=== PATIENT | female | born 1940 | race Caucasian/White ===

== ENCOUNTER → 2019-05-09 | Outpatient (CLI) | payer OTHER ==
[~2019-05-09] MED LIST: ACET325 PO; ASPI325 PO; CLOP75 PO; DOCU100 PO; ISODIN10 PO; METO50ER PO; OXYC5 PO; PROC5 PO; VERA120 PO
[2019-05-09 14:21] LABS: BASOPHILS ABSOLUTE AUTO 0.04 K/mm3 (0.00-0.23); BASOPHILS PERCENT AUTO 1 % (0-2); EOSINOPHILS PERCENT AUTO 6 % (0-6); Hematocrit 45.7 % (33.0-51.0); Hemoglobin 13.7 g/dL (11.5-16.0); IMMATURE GRAN ABSOLUTE AUTO 0.01 K/mm3 (0.00-0.10); IMMATURE GRAN PERCENT AUTO 0 % (0-1); LYMPHOCYTES ABSOLUTE AUTO 1.33 K/mm3 (0.84-5.20); LYMPHOCYTES PERCENT AUTO 19 % (21-46); MONOCYTES ABSOLUTE AUTO 0.49 K/mm3 (0.16-1.47); MONOCYTES PERCENT AUTO 7 % (4-13); Mean Corpuscular HGB 30.4 pg (26.0-34.0); Mean Corpuscular Volume 101 fL (80-100); NEUTROPHILS PERCENT AUTO 68 % (41-73); Platelet Count 142 K/mm3 (150-400); RDW Coefficient Variation 15.6 % (11.7-14.2); RDW Standard Deviation 59.3 fL (35.1-46.3); Red Blood Cell Count 4.51 M/mm3 (3.80-5.20); White Blood Cell Count 7.17 K/mm3 (4.00-11.30)
[2019-05-09 14:22] LABS: Mean Platelet Volume 13.2 fL (9.1-12.4)
[2019-05-09 14:27] LABS: Alk Phos 74 U/L (50-136); Anion Gap 7 mmol/L (6-16); Aspartate Aminotrans (AST/SGOT 21 U/L (12-37); Bilirubin, Total 0.6 mg/dL (0.1-1.0); Blood Urea Nitrogen 75 mg/dL (8-24); Bun/Creatinine Ratio 50.3 (12.0-20.0); CHOL/HDL RATIO 2.8; CO2, Blood 24 mmol/L (21-32); Calcium, Blood 8.9 mg/dL (8.5-10.1); Chloride, Blood 106 mmol/L (98-108); Cholesterol 151 mg/dL (50-200); Creatinine, Blood 1.49 mg/dL (0.40-1.00); Globulin, Blood 3.9 g/dL (2.2-4.0); Glomerular Filtration Rate 36 (60-); Glucose, Blood 105 mg/dL (70-99); HDL Cholesterol 53 mg/dL (>39); LDL/HDL RATIO 1.4; Low Density Lipoprotein Chol 76 mg/dL (0-110); Potassium, Blood 4.5 mmol/L (3.5-5.5); Sodium, Blood 137 mmol/L (136-145); Total Protein, Blood 7.9 g/dL (6.4-8.2); Triglycerides 108 mg/dL (30-160); Very Low Density Lipoprot Chol 21 mg/dL (6-32)
[2019-05-09 14:43] LABS: Alanine Aminotransfer (ALT/SGP 31 U/L (12-78)
== END | disposition home or self-care (01) ==
LOC: LAB SHORT 12:57 → LAB 12:57
PROVIDERS: Family Medicine
DX: E78.00 Pure hypercholesterolemia, unspecified (principal); I50.9 Heart failure, unspecified
CPT/HCPCS: 80053; 80061; 83880; 85025

== ENCOUNTER 2019-05-16 17:37 | Inpatient (IN) | payer OTHER ==
[~2019-05-16] VITALS: Ht 149.9 cm; Wt 80.8 kg
[~2019-05-16 17:37] MED LIST changes: -METO50ER PO; -VERA120 PO
[2019-05-16 18:10] LABS: Calcium, Ionized (POC) 1.15 mmol/L (1.10-1.46); Chloride (POC) 98 mmol/L (98-108); Creatinine (POC) 2.7 mg/dL (0.6-1.0); Glucose (ISTAT POC) 168 mg/dL (70-99); Hemoglobin (POC) 14.6 g/dL (12.0-16.0); Potassium (POC) 5.9 mmol/L (3.5-5.5); Sodium (POC) 128 mmol/L (135-148); Total CO2 (POC) 22 mmol/L (21-32)
[2019-05-16 18:30] LABS: BASOPHILS ABSOLUTE AUTO 0.03 K/mm3 (0.00-0.23); BASOPHILS PERCENT AUTO 0 % (0-2); EOSINOPHILS ABSOLUTE AUTO 0.07 K/mm3 (0.00-0.68); EOSINOPHILS PERCENT AUTO 1 % (0-6); Hematocrit 41.4 % (33.0-51.0); Hemoglobin 12.4 g/dL (11.5-16.0); IMMATURE GRAN PERCENT AUTO 1 % (0-1); LYMPHOCYTES PERCENT AUTO 9 % (21-46); MONOCYTES ABSOLUTE AUTO 0.92 K/mm3 (0.16-1.47); MONOCYTES PERCENT AUTO 7 % (4-13); Mean Corpuscular HGB 29.7 pg (26.0-34.0); Mean Corpuscular Volume 99 fL (80-100); NEUTROPHILS ABSOLUTE AUTO 11.08 K/mm3 (1.96-9.15); NEUTROPHILS PERCENT AUTO 83 % (41-73); Platelet Count 160 K/mm3 (150-400); RDW Standard Deviation 58.8 fL (35.1-46.3); Red Blood Cell Count 4.17 M/mm3 (3.80-5.20)
[2019-05-16] MEDS ORDERED: ENTRESTO 49 MG PO (18:54)
[2019-05-16] MEDS ORDERED: FURO40 PO (18:54)
[2019-05-16] MEDS ORDERED: Calan Sr120 MG PO (18:56)
[2019-05-16] MEDS ORDERED: WARF5 PO (18:56)
[2019-05-16] MEDS ORDERED: Potassium Chlo20 ME1 PO (18:57)
[2019-05-16] MEDS ORDERED: METO25 PO (18:58)
[2019-05-16 19:02] LABS: Albumin, Blood 3.5 g/dL (3.4-5.0); Bilirubin, Total 0.7 mg/dL (0.1-1.0); Bun/Creatinine Ratio 33.8 (12.0-20.0); Calcium, Blood 8.5 mg/dL (8.5-10.1); Creatinine, Blood 2.28 mg/dL (0.40-1.00); Globulin, Blood 3.6 g/dL (2.2-4.0); Potassium, Blood 5.7 mmol/L (3.5-5.5); Total Protein, Blood 7.1 g/dL (6.4-8.2)
[2019-05-16] MEDS ORDERED: WARF3 PO (19:09)
[2019-05-16] MEDS ORDERED: Carvedilol25 MG PO (19:10)
[2019-05-16 21:42] LABS: International Normalized Ratio 2.29; Prothrombin Time Results 22.5 Sec (9.7-11.5)
--- NOTE | 2019-05-16 23:09 | NUR ---
PCU ADMIT PT BROUGHT TO PCU RM 08 FROM ER BY SANDRA @ APPROX 2130. PT A&O X4, ABLE TO STAND AND AMBULATE TO PCU BED W/ 1 PERSON ASSIST. PT REPORTS EPISODES OF LIGHTHEADEDNESS/DIZZINESS AND "PRESSURE BEHIND MY EYES AFFECTING MY VISION." THAT PT REPORTS TO BE NEW "JUST THIS WEEK." PT DENIES LIGHTHEADEDNESS/DIZZINESS W/ TRANSFER FROM [facility] TO PCU BED. PT REPORTS "I DON'T DO WELL WITH MEDICATIONS. I THINK ALL OF THIS IS BECAUSE THEY HAVE ME ON THOSE NEW PILLS, THE ONES FOR MY AFIB." PT REPORTS VOMITING THIS AM AFTER TAKING AM MEDICATIONS. PT ALSO REPORTS EPISODE OF DARK BROWN DIARRHEA TODAY. PT DENIES N&V AT THIS TIME. PT REPORTS PREVIOUS NECK PAIN SUCCESSFULLY TX'D IN ER W/ NO FURTHER PAIN AT THIS TIME. PT REPORTS HX OF NECK FUSION. MONITOR SHOWS AFIB, HR 60'S. SPO2 > 92% ON RA. TRACE BLE EDEMA NOTED. PT REPORTS CHRONIC N&T TO FINGERS AND TOES. UROSTOMY TO RLQ W/ SCANT AMOUNT OF URINE OUTPUT THAT APPEARS CLEAR YELLOW. PT CONFIRMS ORDER FOR DNR STATUS, DNR BAND PLACED TO L WRIST. WILL CONTINUE TO MONITOR AND PROVIDE CARE.
[2019-05-16 23:52] LABS: Calcium, Blood 8.1 mg/dL (8.5-10.1); Creatinine, Blood 2.22 mg/dL (0.40-1.00); Potassium, Blood 5.9 mmol/L (3.5-5.5)
[2019-05-17 00:16] LABS: Adenovirus Not Detected (NOT DETECT); Bordetella pertussis Not Detected (NOT DETECT); Chlamydophila pneumoniae Not Detected (NOT DETECT); Coronavirus 229E Not Detected (NOT DETECT); Coronavirus HKU1 Not Detected (NOT DETECT); Coronavirus NL63 Not Detected (NOT DETECT); Coronavirus OC43 Not Detected (NOT DETECT); Human Metapneumovirus Not Detected (NOT DETECT); Human Rhinovirus/Enterovirus Not Detected (NOT DETECT); Influenza A Not Detected (NOT DETECT); Influenza A/2009-H1 Not Detected (NOT DETECT); Influenza A/H1 Not Detected (NOT DETECT); Influenza A/H3 Not Detected (NOT DETECT); Influenza B Not Detected (NOT DETECT); Mycoplasma pneumoniae Not Detected (NOT DETECT); Parainfluenza Virus 1 Not Detected (NOT DETECT); Parainfluenza Virus 2 Not Detected (NOT DETECT); Parainfluenza Virus 3 Not Detected (NOT DETECT); Parainfluenza Virus 4 Not Detected (NOT DETECT); Respiratory Syncytial Virus Not Detected (NOT DETECT)
--- NOTE | 2019-05-17 00:42 | NUR ---
K 5.9 / CALL TO [employer] CALL TO KALE KUMAR @ APPROX 0040 TO REPORT K LEVEL OF 5.9 AND PT NEWLY TREMULOUS. PT AFEBRILE. COMM[employer]IES [employer]ER STATES SHE WILL NOTIFY MD FORD WHO ADMITTED PT W/ MD FORD TO INPUT ORDERS. WILL CONTINUE TO MONITOR AND PROVIDE CARE.
[2019-05-17 01:38] LABS: Source, Urine Urostomy Bag
[2019-05-17 01:45] LABS: Bilirubin, Urine Neg (Neg); Blood, Urine 5+ (Neg); Glucose Qualitative, Urine Neg (Neg); Ketones, Urine 1+ (Neg); Leukocyte Esterase, Urine 3+ (Neg); Nitrite, Urine Neg (Neg); Protein, Urine 3+ (Neg); Specific Gravity, Urine 1.015 (1.003-1.022); Urobilinogen, Urine 1+ (Normal)
[2019-05-17 01:56] LABS: Amorphous Mod (0-Heavy); Appearance, Urine Turbid (Clear); Bacteria Many /hpf; Color, Urine Amber (P-Yellow); Mucus Mod (0-Heavy); Squamous Epithelial Cells Not Seen /hpf (Few); White Blood Cells, Urine TNTC /hpf (0-5)
--- NOTE | 2019-05-17 03:14 | NUR ---
CALL TO MD / UA CALL TO MD FORD @ APPROX 0300 TO NOTIFY OF UA RESULTS. MD FORD TO REVIEW AND INPUT ORDERS NEEDED.
[2019-05-17 04:08] LABS: Hematocrit 36.8 % (33.0-51.0); Mean Corpuscular HGB 29.7 pg (26.0-34.0); Mean Corpuscular HGB Conc 29.9 g/dL (31.5-36.5); Mean Corpuscular Volume 100 fL (80-100); Mean Platelet Volume 12.6 fL (9.1-12.4); Platelet Count 85 K/mm3 (150-400); RDW Coefficient Variation 15.8 % (11.7-14.2); RDW Standard Deviation 57.7 fL (35.1-46.3); White Blood Cell Count 11.96 K/mm3 (4.00-11.30)
[2019-05-17 04:27] LABS: Albumin, Blood 2.9 g/dL (3.4-5.0); Albumin/Globulin Ratio 0.9 (0.8-1.8); Bilirubin, Total 0.9 mg/dL (0.1-1.0); Calcium, Blood 8.1 mg/dL (8.5-10.1); Creatinine, Blood 2.12 mg/dL (0.40-1.00); Globulin, Blood 3.3 g/dL (2.2-4.0); Potassium, Blood 4.9 mmol/L (3.5-5.5); Total Protein, Blood 6.2 g/dL (6.4-8.2)
--- NOTE | 2019-05-17 06:36 | NUR ---
SHIFT SUMMARY PT A&O X4. VSS, BP'S LOW AGAIN THIS AM, MAP SUSTAINING > 60. MONITOR SHOWS AFIB, HR 60-110s. SPO2 > 92% ON RA. PT C/O INTERMITTENT HEADACHE & NECK PAIN W/ REPORTED RELIEF USING TYLENOL PER EMAR. UROSTOMY TO RLQ DRAINING DARK YELLOW CLOUDY URINE. K SUCCESSFULLY TX'D W/ IV DEXTROSE & IV INSULIN PER ORDERS THIS SHIFT. PT W/ EPISODE OF FULL BODY TREMORS W/ NO FURTHER TREMORS. WILL CONTINUE TO MONITOR AND PROVIDE CARE UNTIL REPORT OFF TO DAY SHIFT RN.
--- NOTE | 2019-05-17 09:00 | NUR ---
ASSUMED CARE PT ALERT AND ORIENTED. HR 100-110'S AFIB. BP STABLE. O2 SATS REMAIN ABOVE 90% ON RA. PT DENIES FEELING SOB OR DIZZY THIS AM. SPOKE WITH DR. DOUGLAS ABOUT HR TRENDING UP. AWAITING NEW ORDERS. WILL CONTINUE TO MONITOR YG.
--- NOTE | 2019-05-17 12:32 | NUR ---
REPORT GIVEN TO CALIXTO KIRBY.
--- NOTE | 2019-05-17 20:45 | NUR ---
CARE ASSUMPTION PT A&O X4. VSS. MONITOR SHOWS AFIB, HR 100-110. SPO2 > 92% ON RA. PT IN GOOD SPIRITS AFTER VISITING W/ MULTIPLE FAMILY MEMBERS IN ROOM. WILL CONTINUE TO MONITOR AND PROVIDE CARE.
[2019-05-18 04:16] LABS: BASOPHILS ABSOLUTE AUTO 0.01 K/mm3 (0.00-0.23); BASOPHILS PERCENT AUTO 0 % (0-2); EOSINOPHILS ABSOLUTE AUTO 0.11 K/mm3 (0.00-0.68); EOSINOPHILS PERCENT AUTO 1 % (0-6); Hemoglobin 10.8 g/dL (11.5-16.0); IMMATURE GRAN ABSOLUTE AUTO 0.06 K/mm3 (0.00-0.10); IMMATURE GRAN PERCENT AUTO 1 % (0-1); LYMPHOCYTES ABSOLUTE AUTO 0.84 K/mm3 (0.84-5.20); LYMPHOCYTES PERCENT AUTO 9 % (21-46); MONOCYTES ABSOLUTE AUTO 0.77 K/mm3 (0.16-1.47); MONOCYTES PERCENT AUTO 9 % (4-13); Mean Corpuscular HGB 29.6 pg (26.0-34.0); Mean Corpuscular HGB Conc 30.9 g/dL (31.5-36.5); NEUTROPHILS ABSOLUTE AUTO 7.28 K/mm3 (1.96-9.15); NEUTROPHILS PERCENT AUTO 80 % (41-73); Platelet Count 87 K/mm3 (150-400); RDW Coefficient Variation 15.9 % (11.7-14.2); Red Blood Cell Count 3.65 M/mm3 (3.80-5.20); White Blood Cell Count 9.07 K/mm3 (4.00-11.30)
[2019-05-18 04:21] LABS: Mean Corpuscular Volume 96 fL (80-100); Mean Platelet Volume 13.2 fL (9.1-12.4)
[2019-05-18 04:28] LABS: International Normalized Ratio 2.71; Prothrombin Time Results 26.2 Sec (9.7-11.5)
[2019-05-18 04:37] LABS: Bun/Creatinine Ratio 41.3 (12.0-20.0); Calcium, Blood 8.1 mg/dL (8.5-10.1); Creatinine, Blood 1.5 mg/dL (0.40-1.00); Potassium, Blood 5.4 mmol/L (3.5-5.5)
--- NOTE | 2019-05-18 04:42 | NUR ---
SHIFT SUMMARY PT A&O X4, PLEASANT AND COOPERATIVE. VSS. MONITOR SHOWS AFIB, HR 90-110s. SPO2 > 92% ON RA. NO C/O PAIN/DISCOMFORT THIS SHIFT. UROSTOMY DRAINING DARK YELLOW URINE. PT ANTICIPATING DISCHARGE HOME TODAY. WILL CONTINUE TO MONITOR AND PROVIDE CARE UNTIL REPORT OFF TO DAY SHIFT RN.
[2019-05-18] MEDS ORDERED: HIGH POTENCY P1 EACH PO (09:15)
[2019-05-18] MEDS ORDERED: CIPR500 PO (09:16)
--- NOTE | 2019-05-18 11:16 | NUR ---
PATIENT DISCHARGED HOME WITH DAUGHTER, MEDICATIONS CALLED INTO [facility]. ALL IV LINES DISCONTINUED.
== END 2019-05-18 11:19 | disposition home or self-care (01) | DRG 394 ==
LOC: ER 17:37 → PCU 17:38
PROVIDERS: Internal Medicine; Physician Assistant; ADMIT Internal Medicine
DX: K52.1 Toxic gastroenteritis and colitis (principal); I50.42 Chronic combined systolic (congestive) and diastolic (congestive) heart failure; N17.9 Acute kidney failure, unspecified; N18.4 Chronic kidney disease, stage 4 (severe); I48.20 Chronic atrial fibrillation, unspecified; E86.0 Dehydration; Z79.01 Long term (current) use of anticoagulants; I25.10 Atherosclerotic heart disease of native coronary artery without angina pectoris; Z95.1 Presence of aortocoronary bypass graft; Z93.2 Ileostomy status; E78.5 Hyperlipidemia, unspecified; Z66 Do not resuscitate; E87.5 Hyperkalemia; R00.1 Bradycardia, unspecified; D69.6 Thrombocytopenia, unspecified; K52.9 Noninfective gastroenteritis and colitis, unspecified; T44.7X5A Adverse effect of beta-adrenoreceptor antagonists, initial encounter; T46.1X5A Adverse effect of calcium-channel blockers, initial encounter; T46.5X5A Adverse effect of other antihypertensive drugs, initial encounter; C67.9 Malignant neoplasm of bladder, unspecified
CPT/HCPCS: 0099U; 36415; 71045; 80047; 80048; 80053; 81001; 83605; 83880; 84145; 84484; 85014; 85025; 85027; 85610; 87040; 87077; 87086; 87186; 93005; 93010; 96361; 96365; 96375; 99285-25; A9270; J0461; J0610; J0696; J0744; J1815; J7030; J7050; J7799

== ENCOUNTER 2020-10-06 01:14 | Observation (INO) | payer OTHER ==
[~2020-10-06] VITALS: Ht 149.9 cm; Wt 76.9 kg
[~2020-10-06 01:14] MED LIST changes: +CIPR500 PO; +Calan Sr120 MG PO; +Carvedilol25 MG PO; +ENTRESTO 49 MG PO; +FURO40 PO; +HIGH POTENCY P1 EACH PO; +METO25 PO; +Potassium Chlo20 ME1 PO; +WARF3 PO; +WARF5 PO
[2020-10-06] MEDS ORDERED: JANTOVEN4 M2 (02:24)
[2020-10-06] MEDS ORDERED: JANTOVEN4 M2 PO (02:25)
[2020-10-06] MEDS ORDERED: LISINOPRIL2.5 MG PO (02:26)
[2020-10-06] MEDS ORDERED: METO50 PO (02:27)
[2020-10-06 02:54] LABS: BASOPHILS ABSOLUTE AUTO 0.03 K/mm3 (0.00-0.23); BASOPHILS PERCENT AUTO 0 % (0-2); EOSINOPHILS ABSOLUTE AUTO 0.18 K/mm3 (0.00-0.68); EOSINOPHILS PERCENT AUTO 2 % (0-6); Hematocrit 45.5 % (33.0-51.0); Hemoglobin 14.4 g/dL (11.5-16.0); IMMATURE GRAN ABSOLUTE AUTO 0.04 K/mm3 (0.00-0.10); IMMATURE GRAN PERCENT AUTO 0 % (0-1); LYMPHOCYTES ABSOLUTE AUTO 1.16 K/mm3 (0.84-5.20); LYMPHOCYTES PERCENT AUTO 11 % (21-46); MONOCYTES ABSOLUTE AUTO 0.44 K/mm3 (0.16-1.47); MONOCYTES PERCENT AUTO 4 % (4-13); Mean Corpuscular HGB 31.9 pg (26.0-34.0); Mean Corpuscular HGB Conc 31.6 g/dL (31.5-36.5); Mean Corpuscular Volume 101 fL (80-100); Mean Platelet Volume 12.9 fL (9.1-12.4); NEUTROPHILS ABSOLUTE AUTO 8.68 K/mm3 (1.96-9.15); NEUTROPHILS PERCENT AUTO 82 % (41-73); Platelet Count 155 K/mm3 (150-400); RDW Standard Deviation 56.3 fL (35.1-46.3); Red Blood Cell Count 4.52 M/mm3 (3.80-5.20); White Blood Cell Count 10.53 K/mm3 (4.00-11.30)
[2020-10-06 03:31] LABS: Albumin, Blood 3.6 g/dL (3.4-5.0); Albumin/Globulin Ratio 0.8 (0.8-1.8); Bilirubin, Total 0.6 mg/dL (0.1-1.0); Bun/Creatinine Ratio 38.8 (12.0-20.0); Calcium, Blood 9.2 mg/dL (8.5-10.1); Creatinine, Blood 1.39 mg/dL (0.40-1.00); Globulin, Blood 4.4 g/dL (2.2-4.0); Potassium, Blood 4.5 mmol/L (3.5-5.5)
[2020-10-06] MEDS ORDERED: ASCO500 PO (04:56)
[2020-10-06] MEDS ORDERED: THERA-D2000 UNIT PO (04:58)
--- NOTE | 2020-10-06 05:00 | NUR ---
ADMIT ARRIVED TO @0450 VIA WHEELCHAIR. PT TRANSFERRED SELF TO NEW BED. ORIENTED TO CALL LIGHT SYSTEM & . WILL MONITOR.
[2020-10-06 05:22] LABS: International Normalized Ratio 2.52; Prothrombin Time Results 25.6 Sec (9.7-11.5)
--- NOTE | 2020-10-06 06:01 | NUR ---
SHIFT SUMMARY AOX4. VSS. TELE AFIB HR 113-120. ADMITTED FOR POSSIBLE SBO. DENIES ANY ABD PAIN OR N/V SINCE ARRIVING TO FLOOR. HAD 1 LIQUID BROWN BM SINCE ARRIVING TO FLOOR, SENT GI PANEL. CURRENTLY NPO PER ORDERS, PT REPORTS SHE HAS BEEN HAVING REGULAR BM, HOWEVER LAST NIGHT IN ER SHE HAD AN "EXPLOSIVE DIRRHEA". DENIES ANY LACK OF APPETITE & WOULD LIKE TO TRY TO EAT SOMETHING. BT ACTIVE. NO ABD TENDERNESS TO PALPATION. HAS UROSTOMY RLQ, DRAINING CLEAR YELLOW URINE. CALL LIGHT IN REACH, WILL MONITOR.
[2020-10-06 09:26] LABS: Adenovirus F 40/41 Not Detected (NOT DETECT); Astrovirus Not Detected (NOT DETECT); Campylobacter Sp Not Detected (NOT DETECT); Cryptosporidium Not Detected (NOT DETECT); Cyclospora Cayetanensis Not Detected (NOT DETECT); E. Coli O157 Not Detected (NOT DETECT); Entamoeba Histolytica Not Detected (NOT DETECT); Enteroaggregative E. coli-EAEC Not Detected (NOT DETECT); Enteropathogenic E. coli-EPEC Not Detected (NOT DETECT); Enterotoxigenic E. coli-ETEC Not Detected (NOT DETECT); Giardia Lamblia Not Detected (NOT DETECT); Norovirus GI/GII Not Detected (NOT DETECT); Plesiomonas Shigelloides Not Detected (NOT DETECT); Rotavirus A Not Detected (NOT DETECT); Salmonella Sp Not Detected (NOT DETECT); Sapovirus Not Detected (NOT DETECT); Shiga Toxin-prod E. coli-STEC Not Detected (NOT DETECT); Shigella/Enteroin E. coli-EIEC Not Detected (NOT DETECT); Vibrio Cholerae Not Detected (NOT DETECT); Vibrio Sp Not Detected (NOT DETECT); Yersinia Enterocolitica Not Detected (NOT DETECT)
[2020-10-06] MEDS ORDERED: VISBIOME 112.51 EACH PO (14:31)
[2020-10-06] MEDS ORDERED: METO25 PO (14:33)
--- NOTE | 2020-10-06 15:06 | NUR ---
PATIENT DISCHARGED TO HOME ACCOMPANIED BY DAUGHTER. IV SALINE LOCK REMOVED WITHOUT INCIDENT, WAS TELEMETRY BOX. PT VERBALIZED UNDERSTANDING OF D/C INSTRUCTIONS, INCLUDING CHANGE TO METOPROLOL DOSE. PROVIDER DID NOT WRITE ORDER FOR PCP FOLLOW UP. OFF UNIT VIA W/C AT 1450. NO BELONGINGS FOUND IN ROOM.
== END 2020-10-06 14:50 | disposition home or self-care (01) ==
LOC: ER 01:14 → MEDS 01:15 → ER 04:25 → MEDS 04:25
PROVIDERS: Emergency Medicine; ADMIT Family Medicine
DX: K56.600 Partial intestinal obstruction, unspecified as to cause (principal); K52.89 Other specified noninfective gastroenteritis and colitis; I48.20 Chronic atrial fibrillation, unspecified; N17.9 Acute kidney failure, unspecified; I12.9 Hypertensive chronic kidney disease with stage 1 through stage 4 chronic kidney disease, or unspecified chronic kidney disease; N18.30 Chronic kidney disease, stage 3 unspecified; I25.10 Atherosclerotic heart disease of native coronary artery without angina pectoris; Z93.59 Other cystostomy status; Z95.1 Presence of aortocoronary bypass graft; Z79.01 Long term (current) use of anticoagulants; Z66 Do not resuscitate
CPT/HCPCS: 0097U; 36415; 74176; 80053; 82947; 83690; 85025; 85610; 99285-25; A9270; G0378; J0696; J7030

== ENCOUNTER → 2021-07-08 | Outpatient (CLI) | payer OTHER ==
[~2021-07-08] MED LIST changes: +ASCO500 PO; +JANTOVEN4 M2; +JANTOVEN4 M2 PO; +LISINOPRIL2.5 MG PO; +METO50 PO; +THERA-D2000 UNIT PO; +VISBIOME 112.51 EACH PO
== END | disposition home or self-care (01) ==
LOC: LAB SHORT 11:00
DX: R31.9 Hematuria, unspecified (principal)
CPT/HCPCS: 87086

== ENCOUNTER 2022-07-04 21:21 | Emergency (ER) | payer OTHER ==
[~2022-07-04] VITALS: Ht 152.4 cm; Wt 73.9 kg
[2022-07-04 22:13] LABS: BASOPHILS ABSOLUTE AUTO 0.03 K/mm3 (0.00-0.23); BASOPHILS PERCENT AUTO 0 % (0-2); EOSINOPHILS ABSOLUTE AUTO 0.07 K/mm3 (0.00-0.68); EOSINOPHILS PERCENT AUTO 1 % (0-6); Hematocrit 48.5 % (33.0-51.0); Hemoglobin 15.2 g/dL (11.5-16.0); IMMATURE GRAN ABSOLUTE AUTO 0.03 K/mm3 (0.00-0.10); IMMATURE GRAN PERCENT AUTO 0 % (0-1); LYMPHOCYTES ABSOLUTE AUTO 0.87 K/mm3 (0.84-5.20); LYMPHOCYTES PERCENT AUTO 10 % (21-46); MONOCYTES PERCENT AUTO 2 % (4-13); Mean Corpuscular HGB 31.1 pg (26.0-34.0); Mean Corpuscular HGB Conc 31.3 g/dL (31.5-36.5); Mean Corpuscular Volume 99 fL (80-100); Mean Platelet Volume 11.7 fL (9.1-12.4); NEUTROPHILS ABSOLUTE AUTO 7.51 K/mm3 (1.96-9.15); NEUTROPHILS PERCENT AUTO 86 % (41-73); Platelet Count 157 K/mm3 (150-400); RDW Standard Deviation 55.5 fL (35.1-46.3); Red Blood Cell Count 4.89 M/mm3 (3.80-5.20); White Blood Cell Count 8.71 K/mm3 (4.00-11.30)
[2022-07-04 22:35] LABS: Albumin, Blood 3.9 g/dL (3.4-5.0); Albumin/Globulin Ratio 0.8 (0.8-1.8); Bilirubin, Total 0.9 mg/dL (0.1-1.0); Bun/Creatinine Ratio 47.5 (12.0-20.0); Calcium, Blood 9.7 mg/dL (8.5-10.1); Creatinine, Blood 1.39 mg/dL (0.40-1.00); Globulin, Blood 4.6 g/dL (2.2-4.0); Potassium, Blood 4.6 mmol/L (3.5-5.5); Total Protein, Blood 8.5 g/dL (6.4-8.2)
[2022-07-04] MEDS ORDERED: FUROSEMIDE20 MG PO (23:53)
[2022-07-04] MEDS ORDERED: LOSA50 PO (23:54)
[2022-07-05 01:12] LABS: Source, Urine Clean Catch
[2022-07-05 01:35] LABS: Bilirubin, Urine Neg (Neg); Blood, Urine 5+ (Neg); Glucose Qualitative, Urine Neg (Neg); Ketones, Urine Neg (Neg); Leukocyte Esterase, Urine 2+ (Neg); Nitrite, Urine Neg (Neg); Protein, Urine 3+ (Neg); Specific Gravity, Urine 1.015 (1.003-1.022); Urobilinogen, Urine NORM (Normal)
[2022-07-05 01:43] LABS: Appearance, Urine Bloody (Clear); Color, Urine Brown (P-Yellow)
[2022-07-05 01:45] LABS: Bacteria Many /hpf; Mucus Mod (0-Heavy); Red Blood Cells, Urine TNTC /hpf (0-2); Squamous Epithelial Cells Rare /hpf (Few)
[2022-07-05 02:46] LABS: International Normalized Ratio 3.25; Prothrombin Time Results 31.6 Sec (9.7-11.5)
== END 2022-07-05 05:12 | disposition home or self-care (01) ==
LOC: ER 21:21
PROVIDERS: Student in an Organized Health Care Education/Training Program
DX: K52.9 Noninfective gastroenteritis and colitis, unspecified (principal); I48.91 Unspecified atrial fibrillation; R79.0 Abnormal level of blood mineral; R31.9 Hematuria, unspecified; I25.10 Atherosclerotic heart disease of native coronary artery without angina pectoris; I10 Essential (primary) hypertension; Z79.01 Long term (current) use of anticoagulants; Z88.5 Allergy status to narcotic agent; Z88.8 Allergy status to other drugs, medicaments and biological substances; Z79.899 Other long term (current) drug therapy; Z95.1 Presence of aortocoronary bypass graft; Z87.891 Personal history of nicotine dependence
CPT/HCPCS: 36415; 71045; 74177; 80053; 81001; 83690; 85025; 85610; 93005; 93010; A9270; Q9967

== ENCOUNTER → 2022-07-12 | Outpatient (CLI) | payer OTHER ==
[~2022-07-12] MED LIST changes: +FUROSEMIDE20 MG PO; +LOSA50 PO
== END | disposition home or self-care (01) ==
LOC: LAB SHORT 13:23
DX: R31.9 Hematuria, unspecified (principal); R82.998 Other abnormal findings in urine
CPT/HCPCS: 87086